=== PATIENT | female | born 1995 | race Caucasian/White ===

== ENCOUNTER 2017-08-22 19:49 | Emergency (ER) | payer SELFPAY ==
[~2017-08-22] VITALS: Ht 167.6 cm; Wt 56.1 kg
[2017-08-22 19:53] VITALS: BP 141/85; TEMP 36.8; Ht 167.6 cm; Wt 56.1 kg
[2017-08-22 20:26] LABS: PREG INTERNAL NEGATIVE QC NEG CLEAR BACKGROUND; PREG INTERNAL POSITIVE QC POS CONTROL LINE
[2017-08-22 20:31] LABS: URINE APPEARANCE TURBID (CLEAR); URINE BILIRUBIN NEG (NEG); URINE COLOR YELLOW; URINE EPITHELIAL CELL AUTO >30 /lpf (0-5); URINE NITRITE NEG (NEG); URINE PH 7.5 (4.5-7.5); URINE SPECIFIC GRAVITY 1.022 (1.000-1.030); UROBILINOGEN NEG (NEG)
[2017-08-22 20:33] LABS: MANUAL MICROSCOPIC REQUIRED? NO; REVIEW REQ? YES; SULFASALICYLIC ACID NEG (NEG)
[2017-08-22] MEDS ORDERED: CEPH500C2 PO (20:42)
[2017-08-22] MEDS ORDERED: PHEN-876 PO (20:42)
[2017-08-22] MEDS ORDERED: PHENAZOPYRIDINE HOME PACK 200 MG VIAL PO ONE (20:45)
[2017-08-22] MEDS ORDERED: CEPHALEXIN 500MG HOME PACK 1 EA BTL PO ONE (20:45)
[2017-08-22 20:47] VITALS: PULSE 88; O2SAT 96
--- NOTE | 2017-08-23 03:05 | EMERGENCY ROOM VISIT NOTE ---
ED Visit Note First contact with patient: 20:00 Chief Complaint: I am having urinary tract infection symptoms. History of Present Illness: Ms. Dorado is a 22-year-old white female who ambulates into the ED complaining of urinary tract infection symptoms. Patient reports approximately 1.5 weeks ago she started having urinary burning and increased urinary frequency. Since that time her pain has been constant. She reports she has been using [id number] AZO which she's had mild relief of her burning but not or increased urinary frequency. Associated with the symptoms she reports she is having constant suprapubic pain. She describes this as a cramping sensation. She rates her discomfort 6/ 10. The pain is nonradiating. The pain worsens with urination. She has not identified any alleviating factors related to the pain. She reports mild relief of her discomfort when she is taken AZO. Additionally she reports she is also having mild left flank pain. Patient denies fevers, chills, sweats, skin eruptions, skin color changes, upper respiratory tract symptoms, shortness of breath, chest pain, upper abdominal pain, nausea/vomiting, diarrhea, constipation, rectal bleeding, black/ tarry stools, vaginal bleeding, vaginal discharge. Review of Systems: As noted above in history of present illness. All body systems were reviewed and found to be negative as noted above. Past Medical History: Patient denies. Current Medications: Patient denies. Allergies to Medications: Bactrim. Social History: Patient is currently University student; she feels safe in her home environment; she admits to tobacco use and denies alcohol use. Physical Examination: Vital Signs: Date Time Temp Pulse Resp B/P (MAP) Pulse Ox O2 Delivery O2 Flow Rate FiO2 08/22/17 20:47 88 96 08/22/17 19:53 36.8 99 18 141/85 99 Room Air GENERAL: 22-year-old female in no acute distress, nontoxic-appearing, afebrile and hemodynamically stable. NEUROLOGICAL: Awake, alert and oriented to person, place and time. Answering questions appropriately and following commands. Normal gait. Good hand eye coordination. No focal motor sensory deficits. SKIN: Warm, dry and pink. No soft tissue eruptions or trauma noted. HEENT: Atraumatic and normocephalic. PERRLA. Sclera white and conjunctiva pink. Pharynx is nonerythematous or edematous. Speech normal. No lymphadenopathy. Trachea midline. No jugular venous distention. BACK: No tenderness over the bony spine. No CVA tenderness. THORAX: Lungs sounds are clear to auscultation and equal bilaterally with symmetrical chest wall. No wheezing, rales or rhonchi. No crepitus, tenderness , subcutaneous air or deformities noted. HEART: Regular rate and rhythm. No gallops, rubs or murmurs are appreciated. ABDOMEN: Flat and soft with mild suprapubic tenderness. Positive bowel sounds in all quadrants. No guarding, rigidity or organomegaly. EXTREMITIES: Moves all extremities well on command and with purpose. All distal neurovascular statuses are intact and equal bilaterally. ED Course: Patient is assessed as noted above. Patient's medication list was reviewed. Laboratory Testing: Test 08/22/17 20:00 Range/Units Urine Color YELLOW Urine Appearance TURBID CLEAR Urine pH 7.5 4.5-7.5 Urine Specific [place] 1.022 1.000-1.030 Urine Protein NEG NEG Urine Glucose (UA) NEG NEG Urine Ketones TRACE NEG Urine Occult Blood 2+ NEG Urine Nitrite NEG NEG Urine Bilirubin NEG NEG Urine Urobilinogen NEG NEG Urine Leukocyte Esterase LARGE NEG Urine WBC (Auto) >30 0-5 /hpf Urine RBC (Auto) 10-30 0-4 /hpf Urine Hyaline Casts (Auto) 0 0-5 /lpf Urine Epithelial Cells (Auto) >30 0-5 /lpf Urine Bacteria (Auto) 1+ NEG Urine Pathogenic Casts 0 /lpf Urine Yeast (Auto) NONE PRSENT Urine Test NEG NEG Urine Culture, Received: Pending Patient was educated about today's findings and instructed on her treatment plan ; she verbalized understanding and agreement with this plan. Clinical Impression: Urinary tract infection. Disposition: Patient discharged home in stable condition; prior to departure she was reassessed and subjectively reported she was feeling the same. Plan: Patient was prescribed Keflex for antibiotics and Pyridium for urinary discomfort and instructed on her treatment plan. Patient is encouraged use ibuprofen or acetaminophen as needed for pain. Patient was encouraged to stay well-hydrated with increased clear fluids. Patient was encouraged to follow-up at [facility] for recheck in 36-48 hours and culture results. Patient was encouraged return ED for worsening symptoms, fevers, severe back pain, vomiting or any new/concerning symptoms.
== END 2017-08-22 20:45 | disposition home or self-care (01) ==
LOC: C.EDB 19:50 → C.EDD 20:45
DX: N39.0 Urinary tract infection, site not specified (principal); Z72.0 Tobacco use

== ENCOUNTER 2019-12-28 07:36 | Inpatient (IN) ==
[2019-12-28] MEDS: LACTATED RINGER'S 1,000 ML IV PRN ×3 (08:06→18:41)
[2019-12-28] MEDS ORDERED: OXYTOCIN 30 UNITS/500 ML BAG IV PRN ×2 (08:48→18:20)
[2019-12-28 09:11] LABS: Hematocrit (blood only) 34.6 % (37-47); Hemoglobin 11.4 g/dL (12.0-16.0); Mean Corpuscular Hemoglobin 29.3 pg (25-34); Mean Corpuscular Volume 88.9 fL (80-100); Mean Platelet Volume 10.6 fL (7.4-10.4); Platelet Count 201 K/uL (130-400); RDW Coefficient of Variation 12.8 % (11.5-14.5); RDW Standard Deviation 41.1 fL (36.4-46.3); Red Blood Count 3.89 M/uL (4.2-5.4); White Blood Count 7.18 K/uL (4.8-10.8)
--- NOTE | 2019-12-28 09:15 | Obstetrical Progress Note ---
Date of Service December 28, 2019 Assessment & Plan Admission and Anticipated Discharge Date Admission Date: December 28, 2019 Subjective Met pt and family doing well tach since admission( 170's) FHR however has accels. No decels. IVF running Pt denies smoking, had coffee this AM will monitor for now Results & Data ([facility]) Vital Signs (Past 12 Hours) Vital Signs Temp Pulse Resp BP 12/28/19 07:45 37.1 C 77 18 141/80 H
[2019-12-28 09:24] LABS: Mean Corpuscular Hgb Conc 32.9 g/dL (32-36)
[2019-12-28 09:38] LABS: Alanine Aminotransferase 17 U/L (12-78); Albumin Globulin Ratio 0.7 (0.9-2); Albumin Level 2.6 gm/dl (3.4-5.0); Alkaline Phosphatase 124 U/L (45-117); Aspartate Aminotransferase 13 U/L (15-37); BUN Creatinine Ratio 14.8 (10-20); Bilirubin,Total 0.5 mg/dl (0.2-1); Blood Urea Nitrogen 9 mg/dl (7-18); Carbon Dioxide 24 mmol/L (21-32); Chloride 109 mmol/L (98-107); Creatinine Clr Calc Pharmacy 151.3 ml/min; Est GFR (African American) > 150.0; Est GFR (Non-African American) 130.1; Globulin 3.8 gm/dl (2.5-4.0); Glucose 92 mg/dl (70-99); Potassium 4.2 mmol/L (3.5-5.1); Sodium 139 mmol/L (136-145); Total Protein 6.4 gm/dl (6.4-8.2)
[2019-12-28 10:18] LABS: Amphetamines+Metham, Urine Neg (Neg); Barbiturates, Urine Neg (Neg); Benzodiazepine, Urine Neg (Neg); Cocaine, Urine Neg (Neg); MDMA (Ecstacy), Urine Neg (Neg); Methadone, Urine Neg (Neg); Opiate, Urine Neg (Neg); Phencyclidine, Urine Neg (Neg)
--- NOTE | 2019-12-28 11:11 | Obstetrical Progress Note ---
Date of Service December 28, 2019 Assessment & Plan Admission and Anticipated Discharge Date Admission Date: December 28, 2019 Subjective Pt doing well Sin bulb was attempted but pt is 2cm dilated and so sin would not stay VE; /-3 FHR; CAT1 Ctx; minimal Will give Cytotec Results & Data ([facility]) Vital Signs (Past 12 Hours) Vital Signs Temp Pulse Resp BP 12/28/19 11:04 104 H 164/84 H 12/28/19 10:48 37.1 C 75 18 160/78 H 12/28/19 07:45 37.1 C 77 18 141/80 H
[2019-12-28] MEDS ORDERED: miSOPROStoL 50 MCG TAB PO ONE (11:15)
--- NOTE | 2019-12-28 18:23 | Obstetrical Progress Note ---
Date of Service December 28, 2019 Assessment & Plan Admission and Anticipated Discharge Date Admission Date: December 28, 2019 Subjective pt doing well No complaints FHR; CAT1 Ctx; irregular,mild VE 12/22/post received 1 dose of Cervidil will start Pitocin Results & Data ([facility]) Vital Signs (Past 12 Hours) Vital Signs Temp Pulse Resp BP 12/28/19 15:02 37.1 C 71 16 140/82 12/28/19 11:19 80 131/65 12/28/19 11:04 104 H 164/84 H 12/28/19 10:48 37.1 C 75 18 160/78 H 12/28/19 07:45 37.1 C 77 18 141/80 H
[2019-12-29] MEDS: LACTATED RINGER'S 1,000 ML IV PRN ×2 (02:33→06:49)
[2019-12-29] MEDS ORDERED: BUTORPHANOL TARTRATE 1 MG/ML VIAL IV PRN (03:12)
[2019-12-29] MEDS ORDERED: ONDANSETRON INJ 2 MG/ML 2 ML VIAL IV PRN ×2 (05:09→06:04)
[2019-12-29] MEDS ORDERED: BUPIVACAINE 0.25% 30 ML VIAL ONE (05:15)
[2019-12-29] MEDS ORDERED: ePHEDrine sulfate 50 MG/ML AMP ONE (05:15)
[2019-12-29] MEDS ORDERED: fentaNYL citrate 100 MCG/2 ML VIAL ONE (05:15)
[2019-12-29] MEDS ORDERED: fentaNYL 2MCG/ML ROPIV 1.25MG/ML 100 ML BAG EPI ONE (05:16)
[2019-12-29] MEDS ORDERED: NALBUPHINE HCL INJ 10 MG/ML AMP IV PRN (06:04)
[2019-12-29] MEDS ORDERED: NALOXONE HCL 1 MG in SODIUM CHLORIDE 0.9% 1000ML 1,000 ML IV PRN (06:04)
[2019-12-29] MEDS ORDERED: NALOXONE HCL 0.4 MG/1 ML VIAL/CARP IV PRN (06:04)
[2019-12-29] MEDS ORDERED: DiphenhydrAMINE HCL 50 MG/ML VIAL IV PRN (06:04)
[2019-12-29] MEDS ORDERED: ePHEDrine sulfate 50 MG/ML AMP IV PRN (06:04)
[2019-12-29] MEDS ORDERED: fentaNYL 2MCG/ML ROPIV 1.25MG/ML 100 ML BAG EPI PRN (06:04)
--- NOTE | 2019-12-29 06:07 | Anesthesiology Consultation ---
Date of Service December 29, 2019 Assessment & Plan Chart Review Chart Review: Patient NOT seen in Pre Admission Testing and Acceptable Risk for Labor Epidural Consults Requested none ASA ASA2 Proposed Anesthesia Anesthesia Type: Labor Epidural and CSE Risk / Benefits Reviewed With: PT / POA / Parent / Guardian, Accepts Plan and Informed Consent Obtained History Height/Weight Height: 5 ft 6 in Weight: 71.214 kg Allergies Allergy/AdvReac Type Severity Reaction Status Date / Time Bactrim Allergy Unknown HIVES Unverified 05/13/18 09:24 sulfamethoxazole [Bactrim] Allergy Unknown HIVES Verified 12/28/19 10:08 trimethoprim [Bactrim] Allergy Unknown HIVES Verified 12/28/19 10:09 Medications Home Medications Medication Instructions Recorded Confirmed Last Taken PNV cmb#95-ferrous fumarate-FA 1 tab PO PM 05/12/19 12/28/19 12/28/19 05:30 [] Ca cmb no.4-R5-M-8-OU-L35-aloe 1,000 tab PO DAILY 12/28/19 12/28/19 12/28/19 05:30 [Vitamin D-3 with Aloe] Active Medications Generic Name Dose Route Start Last Admin Trade Name Freq PRN Reason Stop Dose Admin Butorphanol Tartrate 1 mg 12/29/19 03:12 12/29/19 03:21 Stadol IV 01/28/20 03:11 1 mg ONCE PRN Administration Pain Lactated Ringer's 1,000 mls @ 125 mls/hr 12/28/19 08:48 12/29/19 05:47 Lr IV 12/30/19 08:47 125 mls/hr .Q8H PRN Infusion L&D Protocol Protocol Oxytocin 30 units in 500 mls @ 20 mls/hr 12/28/19 18:20 12/29/19 05:41 Pitocin IV 12/30/19 18:19 1.2 units/hr .Q24H PRN 20 mls/hr Labor Induction/Augmentation Titration Protocol 1.2 UNITS/HR Ondansetron HCl 4 mg 12/29/19 05:09 12/29/19 05:20 Zofran IV 01/28/20 05:08 4 mg ONCE PRN Administration Nausea NPO Date Last Intake of Fluids: 12/29/19 Time Last Intake of Fluids: 05:30 Date Last Intake of Solids: 12/28/19 Time Last Intake of Solids: 17:00 Past Medical History Medical History Anxiety no medications Depression no medications PTSD (post-traumatic stress disorder) uncertain of cause per patient UTI (urinary tract infection) (Acute) Exercise / Class Metabolic Activity II 4-5 Yardwork/Stairs/Walk up hill Past Surgical History Surgical History Thayer teeth removed as teenager Past Anesthesia History No Hx of Anesthesia Complications and No Family Hx of Anesthesia Complications History of PONV No Hx of PONV and No Hx of Motion Sickness Social History Smoking Status: Former smoker Hx Alcohol Use: No Hx Substance Use: No substance use type: does not use Review of Systems no chest pain or sob Physical Exam Vital Signs Last Vital Signs Temp 37.1 C 12/29/19 02:35 Pulse 102 H 12/29/19 06:05 Resp 20 12/29/19 05:33 BP 140/89 12/29/19 05:33 Pulse Ox 99 12/29/19 06:05 ENMT Mouth: no TMJ abnormality Thyromental Distance: > or= 3.5 Finger Breadths Mallampati Class: II Neck normal visual inspection Respiratory normal respiratory effort Auscultation: lungs clear to auscultation bilaterally Cardiovascular Rate/Rhythm: regular rate and regular rhythm Musculoskeletal Spine: normal cervical ROM Neurologic moves all extremities Psychiatric Orientation: alert and oriented x 3 Testing Laboratory Results 12/28/19 08:58 12/28/19 08:58
--- NOTE | 2019-12-29 08:31 | Obstetrical Progress Note ---
Date of Service December 29, 2019 Assessment & Plan Admission and Anticipated Discharge Date Admission Date: December 28, 2019 Subjective Patient is a 24 yo at 39.2 wks admitted for IOL for GDMA1, IUGR yesterday by Dr Rajput Patient is seen and discussed her PMH, PSH, meds Denies any medical problems, surgeries, Smoking/ alcohol or D use Denies any h/o STD's including HSV She has been on Pitocin, AROM'ed this morning by Dr Rajput, cervix was 3-4 cm/ -2 per him FHR had been categ I GBS negative Comfortable, has epidural All questions were answered Continue to monitor closey Results & [facility] ([facility]) Vital Signs (Past 12 Hours) Vital Signs Temp Pulse Resp BP Pulse Ox 12/29/19 08:27 82 131/79 12/29/19 08:26 93 H 97 12/29/19 08:24 97 H 94 12/29/19 08:22 71 132/81 12/29/19 08:21 71 96 12/29/19 08:17 86 128/79 12/29/19 08:16 82 96 12/29/19 08:13 67 132/84 12/29/19 08:11 71 95 12/29/19 08:07 75 125/70 12/29/19 08:06 67 95 12/29/19 08:02 65 129/70 12/29/19 08:01 68 95 12/29/19 07:57 67 139/71 12/29/19 07:56 70 95 12/29/19 07:52 71 133/70 12/29/19 07:51 71 95 12/29/19 07:47 66 139/73 12/29/19 07:46 66 97 12/29/19 07:42 75 135/66 12/29/19 07:41 76 96 12/29/19 07:38 84 138/68 12/29/19 07:36 74 96 12/29/19 07:32 80 136/88 12/29/19 07:31 77 96 12/29/19 07:27 62 120/59 L 93 12/29/19 07:26 65 95 12/29/19 07:22 73 129/63 12/29/19 07:21 68 96 12/29/19 07:17 37.1 C 73 20 135/62 12/29/19 07:16 71 96 12/29/19 07:13 82 129/58 L 12/29/19 07:11 88 97 12/29/19 07:07 75 142/81 H 12/29/19 07:06 80 97 12/29/19 07:04 78 137/72 12/29/19 07:01 106 H 98 12/29/19 06:57 70 130/71 12/29/19 06:56 75 96 12/29/19 06:52 84 131/74 12/29/19 06:51 73 96 12/29/19 06:50 37.0 C 12/29/19 06:47 86 18 134/73 12/29/19 06:46 85 96 12/29/19 06:42 75 18 127/73 12/29/19 06:41 80 94 12/29/19 06:36 85 126/71 96 12/29/19 06:33 83 18 131/70 12/29/19 06:31 80 96 12/29/19 06:30 88 139/74 12/29/19 06:27 90 18 138/77 12/29/19 06:26 78 96 12/29/19 06:24 82 18 130/68 12/29/19 06:21 97 H 138/90 97 12/29/19 06:18 96 H 20 133/81 12/29/19 06:16 95 H 97 12/29/19 06:10 112 H 98 12/29/19 06:05 102 H 99 12/29/19 06:00 103 H 100 12/29/19 05:55 79 97 12/29/19 05:50 80 97 12/29/19 05:45 95 H 99 12/29/19 05:40 78 98 12/29/19 05:35 67 97 12/29/19 05:33 71 20 140/89 12/29/19 05:30 70 97 12/29/19 05:25 73 97 12/29/19 04:17 79 138/82 12/29/19 03:18 71 135/81 12/29/19 02:35 37.1 C 18 12/29/19 02:19 71 123/58 L 12/29/19 01:45 74 16 117/60 12/29/19 00:17 71 16 133/81 12/28/19 23:17 56 L 153/73 H 12/28/19 22:40 37.1 C 12/28/19 22:18 63 18 134/83 12/28/19 21:32 85 133/86
[2019-12-29] MEDS ORDERED: DIPHTHERIA/TETANUS/PERTUSSIS 0.5 ML SYR/VIAL IM ONE (11:33)
[2019-12-29] MEDS ORDERED: SUPERCREAM 0.870% 15 GM JAR EXT PRN (11:33)
[2019-12-29] MEDS ORDERED: bisacodyL 10 MG SUPP PR PRN (11:33)
[2019-12-29] MEDS ORDERED: HYDROCORTISONE ACETATE 25 MG SUPP PR PRN (11:33)
[2019-12-29] MEDS ORDERED: OXYTOCIN 30 UNITS/500 ML BAG IV PRN (11:33)
[2019-12-29] MEDS ORDERED: MEASLES, MUMPS & RUBELLA VIRUS VIAL SQ ONE (11:33)
--- NOTE | 2019-12-29 11:55 | Delivery Summary ---
DATE OF OPERATION: 12/29/2019 DATE OF DELIVERY: 12/29/2019 TIME: 11:05 a.m. DETAILS OF DELIVERY: The patient was found to be fully dilated and desired to push. She pushed through 5 contractions and delivered the head without difficulty. Shoulders were delivered with minimal traction. There was a nuchal cord around the neck x1, which was reduced and baby was handed to the mother where mouth and nose were suctioned. Cord was clamped x2 and cut. It was 3 vessels cord. Cord blood was obtained and then the vagina and perineum were checked for lacerations. There were bilateral labial lacerations superiorly. Right one was extending into the right lower vagina about 1 cm. Those were repaired with 3-0 Vicryl in a running locked fashion. Excellent hemostasis was achieved. The placenta was found to be in the vagina, delivered spontaneous as intact and complete. Uterus was explored, found to be empty. Fundus was firm. EBL was 100 mL. Mom and baby tolerated the procedure well. Sponge, lap, needle count was correct x3. Baby was a viable female , Apgars 8/9, weight is 2734 gr. No complications happened and I was present during the whole procedure. I attest to the content of the Intraoperative Record and any orders documented therein. Any exceptions are noted below. MTDD
[2019-12-29] MEDS: IBUPROFEN 600 MG TAB PO PRN ×2 (14:19→19:02)
[2019-12-29] MEDS: ACETAMINOPHEN 325 MG TAB PO PRN (14:57)
--- NOTE | 2019-12-29 15:54 | Anesthesia Procedure Note ---
Date of Service December 29, 2019 Anesthesia Post Epidural Note Vital Signs Vital Signs: Temp Pulse Resp BP Pulse Ox 36.8 C 93 H 20 148/79 H 95 12/29/19 14:30 12/29/19 14:30 12/29/19 14:30 12/29/19 14:30 12/29/19 14:30 Pain Intensity Perineal: Pain Intensity: 4 Notes Mental Status: alert / awake / arousable Nausea / Vomiting: adequately controlled Pain: adequately controlled Airway Patency, RR, SpO2: stable & adequate BP & HR: stable & adequate Hydration State: stable & adequate Neuraxial Anesthesia: was administered and sensory block is resolving Anesthetic Complications: no major complications apparent and Pt Satisfied with anesthetic care Epidural: Removed without complications and With tip intact
[2019-12-29] MEDS: DOCUSATE SODIUM 100 MG CAP PO SCH (20:06)
[2019-12-30] MEDS: IBUPROFEN 600 MG TAB PO PRN ×3 (00:57→16:55)
[2019-12-30] MEDS: ACETAMINOPHEN 325 MG TAB PO PRN ×2 (04:51→15:07)
[2019-12-30 07:24] LABS: Hematocrit (blood only) 32.4 % (37-47); Hemoglobin 10.6 g/dL (12.0-16.0); Mean Corpuscular Hemoglobin 29.1 pg (25-34); Mean Corpuscular Hgb Conc 32.7 g/dL (32-36); Mean Platelet Volume 11.1 fL (7.4-10.4); Platelet Count 179 K/uL (130-400); RDW Coefficient of Variation 12.7 % (11.5-14.5); RDW Standard Deviation 41.5 fL (36.4-46.3); Red Blood Count 3.64 M/uL (4.2-5.4); White Blood Count 8.47 K/uL (4.8-10.8)
[2019-12-30] MEDS: BENZOCAINE 20% AER SPR 82.5 GM CAN EXT PRN (08:06)
[2019-12-30] MEDS: PRENATAL VITAMIN 1 TAB PO SCH (08:07)
[2019-12-30] MEDS: FERROUS SULFATE 325 MG TAB PO SCH (08:07)
[2019-12-30] MEDS: DOCUSATE SODIUM 100 MG CAP PO SCH ×2 (08:07→21:47)
--- NOTE | 2019-12-30 09:03 | Obstetrical Progress Note ---
Date of Service December 30, 2019 Assessment & Plan Admission and Anticipated Discharge Date Admission Date: December 28, 2019 Physical Exam Physical Exam: abdomen soft and non tender no calf tenderness ambulating well vaginal bleeding scant hgb 10.6 Results & Data ([facility]) Vital Signs (Past 12 Hours) Vital Signs Temp Pulse Pulse Resp BP BP Pulse Ox 12/30/19 08:00 36.9 C 75 18 126/85 97 12/30/19 04:55 36.6 C 80 18 134/88 12/30/19 00:45 36.9 C 71 18 146/81 H
[2019-12-30] MEDS ORDERED: bisacodyL 5 MG TABEC PO SCH (20:00)
[2019-12-30] MEDS: LABETALOL HCL 100 MG TAB PO SCH (21:47)
[2019-12-31] MEDS: BENZOCAINE 20% AER SPR 82.5 GM CAN EXT PRN (04:06)
[2019-12-31 06:13] LABS: Hematocrit (blood only) 32.1 % (37-47); Hemoglobin 10.8 g/dL (12.0-16.0)
[2019-12-31] MEDS: PRENATAL VITAMIN 1 TAB PO SCH (07:51)
[2019-12-31] MEDS: FERROUS SULFATE 325 MG TAB PO SCH (07:51)
[2019-12-31] MEDS: LABETALOL HCL 100 MG TAB PO SCH (07:51)
[2019-12-31] MEDS: IBUPROFEN 600 MG TAB PO PRN ×2 (07:51→18:07)
[2019-12-31] MEDS: DOCUSATE SODIUM 100 MG CAP PO SCH (07:51)
[2019-12-31] MEDS: ACETAMINOPHEN 325 MG TAB PO PRN ×2 (07:52→18:06)
--- NOTE | 2019-12-31 09:57 | Obstetrical Progress Note ---
Date of Service December 31, 2019 Assessment & Plan Admission and Anticipated Discharge Date Admission Date: December 28, 2019 Physical Exam Physical Exam: doing fine passing gas tolerating diet ambulating well Constitutional: WD/WN, vitals as above comfortable abdomen soft fundus firm no edema neg Eugene's for discharge Results & Data ([facility]) Vital Signs (Past 12 Hours) Vital Signs Temp Pulse Resp BP Pulse Ox 12/31/19 07:55 36.8 C 75 18 139/89 98 12/30/19 23:25 36.6 C 74 16 125/80 Laboratory Results Laboratory Results - last 48 hr 12/30/19 12/31/19 06:46 05:52 WBC 8.47 RBC 3.64 L Hgb 10.6 L 10.8 L Hct 32.4 L 32.1 L MCV 89.0 MCH 29.1 MCHC 32.7 RDW Std Deviation 41.5 RDW Coeff of Johann 12.7 Plt Count 179 MPV 11.1 H
== END 2019-12-31 18:18 | disposition home or self-care (01) | DRG 807 ==
LOC: 4S1 07:36 → 4S2 12-29 14:24

== ENCOUNTER 2021-11-18 17:46 | Inpatient (IN) ==
[2021-11-18] MEDS ORDERED: OXYTOCIN 30 UNITS/500 ML BAG IV PRN ×2 (18:05→20:47)
[2021-11-18] MEDS ORDERED: LACTATED RINGER'S 1,000 ML IV PRN (18:05)
[2021-11-18 18:19] LABS: Hematocrit (blood only) 34.5 % (37-47); Hemoglobin 11.1 g/dL (12.0-16.0); Mean Corpuscular Hemoglobin 28.2 pg (25-34); Mean Corpuscular Hgb Conc 32.2 g/dL (32-36); Mean Corpuscular Volume 87.6 fL (80-100); Mean Platelet Volume 9.9 fL (7.4-10.4); Platelet Count 245 K/uL (130-400); RDW Standard Deviation 48.7 fL (36.4-46.3); Red Blood Count 3.94 M/uL (4.2-5.4); White Blood Count 15.58 K/uL (4.8-10.8)
[2021-11-18] MEDS ORDERED: fentaNYL 2MCG/ML ROPIVACAINE 1.25MG/ML 100 ML BAG EPI ONE (18:38)
[2021-11-18] MEDS ORDERED: ePHEDrine sulfate 50 MG/ML AMP ONE (18:38)
[2021-11-18] MEDS ORDERED: SODIUM CHLORIDE 0.9% INJ 10 ML VIAL ONE (18:38)
[2021-11-18] MEDS ORDERED: BUPIVACAINE 0.25% 30 ML VIAL ONE (18:38)
[2021-11-18] MEDS ORDERED: fentaNYL citrate 100 MCG/2 ML VIAL ONE (18:38)
--- NOTE | 2021-11-18 19:21 | Anesthesiology Consultation ---
Date of Service November 18, 2021 The patient has Covid 19. She is asymptomatic but her boyfriend who is in the room with her has fatigue. Assessment & Plan Chart Review Chart Review: Patient NOT seen in Pre Admission Testing and Acceptable Risk for Labor Epidural Consults Requested none ASA ASA3 Proposed Anesthesia Anesthesia Type: Labor Epidural and CSE Risk / Benefits Reviewed With: PT / POA / Parent / Guardian, Accepts Plan and Informed Consent Obtained History Height/Weight Height: 5 ft 6 in Weight: 66.678 kg Allergies Allergy/AdvReac Type Severity Reaction Status Date / Time sulfamethoxazole Allergy Intermediate HIVES-BACTR Verified 08/12/21 01:39 IUM trimethoprim Allergy Intermediate HIVES-BACTR Verified 08/12/21 01:39 IUM Medications Home Medications Medication Instructions Recorded Confirmed Last Taken vitamins no.144-folic 2 tab PO DAILY 03/26/21 08/12/21 03/25/21 acid 400 mcg chewable tablet () ondansetron 4 mg disintegrating 4 mg PO Q8 PRN 07/22/21 08/12/21 Unknown tablet Active Medications Generic Name Dose Route Start Last Admin Trade Name Freq PRN Reason Stop Dose Admin Lactated Ringer's 1,000 mls @ 125 mls/hr 11/18/21 18:05 11/18/21 18:00 Lr IV 11/20/21 18:04 999 mls/hr .Q8H PRN Administration L&D Protocol Protocol NPO Date Last Intake of Fluids: 11/18/21 Time Last Intake of Fluids: 16:00 Last Intake of Fluids Comment: ice chips Date Last Intake of Solids: 11/17/21 Time Last Intake of Solids: 20:00 Past Medical History Medical History Anxiety no medications Depression no medications PTSD (post-traumatic stress disorder) uncertain of cause per patient UTI (urinary tract infection) Exercise / Class Metabolic Activity II 4-5 Yardwork/Stairs/Walk up hill Past Surgical History Surgical History Macarthur teeth removed as teenager Past Anesthesia History No Hx of Anesthesia Complications and No Family Hx of Anesthesia Complications History of PONV No Hx of PONV and No Hx of Motion Sickness Social History Smoking Status: Former smoker Do You Dip or Chew Tobacco: No Hx Alcohol Use: No (not when pregancy ) Alcohol type: beer alcohol intake frequency: a few times a week Hx Substance Use: No substance use type: does not use Review of Systems no chest pain or sob Physical Exam Vital Signs Last Vital Signs Temp 36.6 C 11/18/21 18:15 Pulse 120 H 11/18/21 19:18 Resp 20 11/18/21 18:15 BP 158/73 H 11/18/21 18:15 Pulse Ox 97 11/18/21 19:18 ENMT Mouth: no TMJ abnormality Thyromental Distance: > or= 3.5 Finger Breadths Mallampati Class: II Neck normal visual inspection Respiratory normal respiratory effort Auscultation: lungs clear to auscultation bilaterally Cardiovascular Rate/Rhythm: regular rate and regular rhythm Musculoskeletal Spine: normal cervical ROM Neurologic moves all extremities Psychiatric Orientation: alert and oriented x 3 Testing Laboratory Results 11/18/21 18:11
--- NOTE | 2021-11-18 20:22 | Progress Note ---
Date of Service November 18, 2021 Assessment & Plan (1) Labor abnormal: Plan: Pt doing well FHR; CAT1 VE; 10/-1 AROM with amnio. hook- Clear fluid Ctx; irregular Plan Anticipate VD Admission and Anticipated Discharge Date Admission Date: November 18, 2021 Results & Data ([facility]) Vital Signs (Past 12 Hours) Vital Signs Temp Pulse Resp BP Pulse Ox 11/18/21 20:18 74 100 11/18/21 20:17 73 107/52 L 11/18/21 20:16 94 H 93 11/18/21 20:13 76 97 11/18/21 20:08 79 99 11/18/21 20:03 72 100 11/18/21 20:01 70 104/62 11/18/21 19:58 78 100 11/18/21 19:56 74 107/61 11/18/21 19:53 77 100 11/18/21 19:51 74 107/60 11/18/21 19:48 75 100 11/18/21 19:46 71 112/62 11/18/21 19:45 89 90 11/18/21 19:43 81 116/56 L 99 11/18/21 19:38 88 96 11/18/21 19:37 87 93 11/18/21 19:33 99 H 94 11/18/21 19:28 123 H 94 11/18/21 19:23 105 H 95 11/18/21 19:21 101 H 91 11/18/21 19:18 120 H 97 11/18/21 19:13 85 95 11/18/21 19:08 115 H 95 11/18/21 19:06 114 H 94 11/18/21 19:03 89 94 11/18/21 19:00 98 H 94 11/18/21 18:58 108 H 97 11/18/21 18:15 36.6 C 107 H 20 158/73 H 11/18/21 17:58 107 H 158/73 H
[2021-11-18] MEDS ORDERED: BENZOCAINE 20% AER SPR 82.5 GM CAN EXT PRN (20:47)
[2021-11-18] MEDS ORDERED: HYDROCORTISONE ACETATE 25 MG SUPP PR PRN (20:47)
[2021-11-18] MEDS ORDERED: SUPERCREAM 0.870% 15 GM JAR EXT PRN (20:47)
[2021-11-18] MEDS ORDERED: bisacodyL 10 MG SUPP PR PRN (20:47)
[2021-11-18] MEDS ORDERED: miSOPROStoL 200 MCG TAB PR ONE (20:47)
[2021-11-18] MEDS ORDERED: METHYLERGONOVINE MALEATE 0.2 MG/ML AMP IM ONE (20:47)
[2021-11-18] MEDS ORDERED: DIPHTHERIA/TETANUS/PERTUSSIS 0.5 ML SYR/VIAL IM ONE (20:47)
[2021-11-18] MEDS ORDERED: ONDANSETRON 4 MG OD TAB PO PRN (22:22)
[2021-11-18] MEDS: DOCUSATE SODIUM 100 MG CAP PO SCH (22:46)
[2021-11-19] MEDS: ACETAMINOPHEN 325 MG TAB PO PRN ×2 (01:34→08:25)
--- NOTE | 2021-11-19 02:39 | Delivery Summary ---
DATE OF DELIVERY: 11/18/2021. DELIVERY NOTE: The patient delivered a live in the occiput anterior presentation. There was nuchal cord x3, which was easily reduced. Infant was delivered and placed on mother's abdomen. Reva duval cord clamp was performed after 1 minute. 's weight and Apgars are in the pediatric record. Cord blood and cord gases were obtained. Placenta spontaneously delivered. Inspection of the plac enta shows a normal looking placenta with 3-vessel cord. Cord gases and placenta sent to pathology f or pathological analysis. Inspection of the perineum showed no laceration or tears. Perineum is intact. Estimated blood loss 450 mL. The patient and baby are stable in recovery. All instruments were removed from the vagina and accounted for x2 including sponges, needles, and ret ractors. Job ID: [id number]
[2021-11-19] MEDS: IBUPROFEN 600 MG TAB PO PRN ×3 (04:51→17:22)
[2021-11-19] MEDS ORDERED: NALOXONE HCL 1 MG in SODIUM CHLORIDE 0.9% 1000ML 1,000 ML IV PRN (06:23)
[2021-11-19] MEDS ORDERED: fentaNYL 2MCG/ML ROPIVACAINE 1.25MG/ML 100 ML BAG EPI PRN (06:23)
[2021-11-19] MEDS ORDERED: ePHEDrine sulfate 50 MG/ML AMP IV PRN (06:23)
[2021-11-19] MEDS ORDERED: ONDANSETRON INJ 2 MG/ML 2 ML VIAL IV PRN (06:23)
[2021-11-19] MEDS ORDERED: NALBUPHINE HCL INJ 10 MG/ML AMP IV PRN (06:23)
[2021-11-19] MEDS ORDERED: diphenhydrAMINE 50 MG/ML VIAL IV PRN (06:23)
[2021-11-19] MEDS ORDERED: NALOXONE HCL 0.4 MG/1 ML VIAL/CARP IV PRN (06:23)
[2021-11-19 07:49] LABS: Hematocrit (blood only) 37.1 % (37-47); Hemoglobin 12.1 g/dL (12.0-16.0); Mean Corpuscular Hgb Conc 32.6 g/dL (32-36); Mean Corpuscular Volume 85.9 fL (80-100); Mean Platelet Volume 10.5 fL (7.4-10.4); Platelet Count 252 K/uL (130-400); RDW Coefficient of Variation 14.6 % (11.5-14.5); RDW Standard Deviation 46.5 fL (36.4-46.3); Red Blood Count 4.32 M/uL (4.2-5.4); White Blood Count 14.99 K/uL (4.8-10.8)
[2021-11-19] MEDS ORDERED: PRENATAL VITAMIN 1 TAB PO SCH (08:00)
--- NOTE | 2021-11-19 08:17 | Anesthesia Procedure Note ---
Date of Service November 19, 2021 Anesthesia Post Epidural Note Vital Signs Vital Signs: Temp Pulse Resp BP Pulse Ox 37.4 C 77 20 122/78 95 11/19/21 07:26 11/19/21 07:26 11/19/21 07:26 11/19/21 07:26 11/19/21 07:26 Pain Intensity Abdomen: Pain Intensity: 4 Notes Mental Status: alert / awake / arousable Nausea / Vomiting: adequately controlled Pain: adequately controlled Airway Patency, RR, SpO2: stable & adequate BP & HR: stable & adequate Hydration State: stable & adequate Neuraxial Anesthesia: was administered and sensory block is resolving Anesthetic Complications: no major complications apparent and Pt Satisfied with anesthetic care Epidural: Removed without complications and With tip intact
[2021-11-19] MEDS: DOCUSATE SODIUM 100 MG CAP PO SCH ×2 (08:25→21:30)
--- NOTE | 2021-11-19 10:44 | Obstetrical Progress Note ---
Date of Service November 19, 2021 Assessment & Plan (1) Normal course: PPD #1 +COVID pt doing well No complaints Wishes to be discharged home today Subjective Ambulation: ambulating normally Voiding: no voiding problems Passing Gas:: Yes Diet Tolerance:: regular diet Lochia:: Small Feeding Type:: breast feeding Review of Systems All systems reviewed & are unremarkable except as noted in HPI & below Physical Exam Constitutional WD/WN, vitals as above well developed and well nourished Eyes PERRL, conjunctivae normal, anicteric sclerae Neck trachea midline, no thyromegaly Respiratory normal respiratory effort, lungs clear to auscultation Auscultation: no crackles, no rales and no wheezes Cardiovascular RRR, no murmur, no edema Gastrointestinal (Abdomen) normal bowel sounds, soft, nontender, no hepatosplenomegaly Uterus is below umbilicus Musculoskeletal no cyanosis or clubbing, extremities motor strength 5/5 Skin no rashes, warm and dry Neurologic patellar DTR's 2+ bilat, sensation intact Psychiatric A+Ox3, euthymic affect Genitourinary normal external appearance Results & Data ([facility]) Vital Signs (Past 12 Hours) Vital Signs Temp Pulse Pulse Resp BP BP Pulse Ox 11/19/21 07:26 37.4 C 77 20 122/78 95 11/19/21 04:25 37.6 C H 83 16 117/75 11/18/21 23:30 37.6 C H 82 16 125/77 11/18/21 23:02 89 119/57 L 11/18/21 22:48 101 H 123/59 L 11/18/21 22:45 100 H 141/65 H
[2021-11-19] MEDS ORDERED: bisacodyL 5 MG TABEC PO SCH (20:00)
== END 2021-11-19 21:40 | disposition home or self-care (01) | DRG 805 ==
LOC: OPB 17:46 → 4S1 17:48 → 4W 18:55 → 3N 23:24 → 2S 11-19 14:30
DX: Z37.0 Single live birth; Z3A.39 39 weeks gestation of pregnancy; U07.1 COVID-19; Z88.2 Allergy status to sulfonamides; O98.52 Other viral diseases complicating childbirth; O69.81X0 Labor and delivery complicated by cord around neck, without compression, not applicable or unspecified